=== PATIENT | male | born 1995 | race Two or more races ===

== ENCOUNTER 2018-08-30 08:08 | Emergency (ER) | payer OTHER ==
--- NOTE | 2018-08-30 08:30 | ED Physician Documentation ---
PD HPI HEENT - Stated complaint Stated Complaint: L HIP PAIN - Chief complaint Chief Complaint: Ext Problem - History obtained from History obtained from: Patient PD PAST MEDICAL HISTORY - Present Medications Home Medications: Ambulatory Orders Medication Instructions Recorded Confirmed No Known Home Medications 08/30/18 08/30/18 - Allergies Allergies/Adverse Reactions: Allergies Allergy/AdvReac Type Severity Reaction Status Date / Time No Known Drug Allergies Allergy Verified 08/30/18 08:25 PD ED PE NORMAL - General General: Alert and oriented X 3, Well developed/nourished - HEENT HEENT: Atraumatic, EOMI, Ears normal, Pharynx benign, Other (No foreign body detected in the oropharynx.) - Neck Neck: No adenopathy, No JVD - Cardiac Cardiac: RRR, No murmur - Respiratory Respiratory: No respiratory distress, Clear bilaterally - Derm Derm: No rash - Neuro Neuro: Alert and oriented X 3, No motor deficit, Normal speech Results - Vitals Vitals: Vital Signs - 24 hr 08/30/18 08:16 Temperature 36.0 C L Heart Rate 59 L Respiratory 16 Rate Blood Pressure 139/76 H O2 Saturation 100 Oxygen O2 Source Room air
[2018-08-30] MEDS ORDERED: IBUPROFEN 800 MG TABLET PO STA (08:41)
--- NOTE | 2018-08-30 08:45 | ED Physician Documentation ---
PD HPI LOWER EXT INJURY - Stated complaint Stated Complaint: L HIP PAIN - Chief complaint Chief Complaint: Ext Problem - History obtained from History obtained from: Patient - History of Present Illness PD HPI LOW EXT INJURY LOCATION: Left, Hip Type of injury: Fall Where injury occurred: Other (basketball court) Timing - onset: Last night Timing - details: Still present Worsened by: Moving, Other (walking) Associated symptoms: No: Weakness, Numbness, Swelling Similar symptoms before: Has not had sx before - Additional information Additional information: The patient is a 23-year-old who presents with left hip pain that initially started 2 days ago after playing basketball. It became worse last night after falling while on the basketball court. The pain is worse with walking, and is interfering with his sleep. He denies history of prior injury to his hip. Review of Systems Constitutional: denies: Fever Nose: denies: Congestion Cardiac: denies: Chest pain / pressure Respiratory: denies: Dyspnea, Cough GI: denies: Abdominal Pain, Nausea, Vomiting : denies: Dysuria Skin: denies: Rash, Abrasion (s) Musculoskeletal: reports: Joint pain (left hip). denies: Neck pain, Back pain Neurologic: denies: Focal weakness, Numbness, Headache PD PAST MEDICAL HISTORY - Past Medical History Past Medical History: No Respiratory: None Endocrine/Autoimmune: None - Past Surgical History Past Surgical History: No - Present Medications Home Medications: Ambulatory Orders Medication Instructions Recorded Confirmed Ibuprofen 800 mg PO TID PRN #20 tablet 08/30/18 - Allergies Allergies/Adverse Reactions: Allergies Allergy/AdvReac Type Severity Reaction Status Date / Time No Known Drug Allergies Allergy Verified 08/30/18 08:25 - Social History Does the pt smoke?: No Smoking Status: Never smoker Does the pt drink ETOH?: Yes Does the pt have substance abuse?: No - Immunizations Immunizations are current?: Yes - POLST Patient has POLST: No PD ED PE NORMAL - Vitals Vital signs reviewed: Yes (Borderline systolic hypertension initially.) - General General: Alert and oriented X 3, Well developed/nourished - HEENT HEENT: Atraumatic - Neck Neck: No bony TTP - Cardiac Cardiac: RRR - Respiratory Respiratory: No respiratory distress, Clear bilaterally - Abdomen Abdomen: Soft, Non tender - Back Back: No spinal TTP - Derm Derm: No rash - Extremities Extremities: No edema, No calf tenderness / cord, Other (There is discomfort with internal and external rotation of the left hip. There is mild tenderness to palpation over the left greater trochanter.) - Neuro Neuro: Alert and oriented X 3, No motor deficit, No sensory deficit, Normal s peech Results - Vitals Vitals: Vital Signs - 24 hr 08/30/18 08:16 Temperature 36.0 C L Heart Rate 59 L Respiratory 16 Rate Blood Pressure 139/76 H O2 Saturation 100 Oxygen O2 Source Room air - Rads (name of study) left hip Radiology: Prelim report reviewed, EMP read contemporaneously, See rad report (Normal hip radiography.) PD MEDICAL DECISION MAKING - ED course Complexity details: reviewed results, re-evaluated patient, considered differential, d/w patient ED course: The patient's presentation is most consistent with contusion to the left hip. Hip radiography reveals no acute bony abnormality. Treatment in the emergency department included administration of ibuprofen 800 mg orally. I discussed with him the expected course of injury, symptomatic treatment and outpatient follow-up, as well as potentially worrisome signs or symptoms that should prompt reevaluation in the emergency department. Departure - Departure Disposition: 01 Home, Self Care Clinical Impression: Contusion of left hip Qualifiers: Encounter type: initial encounter Qualified Code(s): S70.02XA - Contusion of left hip, initial encounter Condition: Stable Instructions: ED Contusion Hip Follow-Up: [facility] [Provider Group] Prescriptions: Ibuprofen 800 mg PO TID PRN #20 tablet PRN Reason: Pain Comments: You can use ibuprofen, up to 800 mg daily if needed for pain. Let pain be your guide to activity level. Follow-up with your primary physician within 2 weeks. Call to schedule appointment. Return to the emergency department if you develop increasing pain, or otherwise worsening symptoms. Forms: Activity restrictions
--- NOTE | 2018-08-30 09:07 | XRAY Report ---
Reason: Fell onto hip last night playing basketball. Procedure Date: 08/30/2018 Accession Number: [id number] / [id number] Procedure: XR - Hip w/Pelvis 2-3V LT CPT Code: FULL RESULT: EXAM: PELVIS AND LEFT HIP RADIOGRAPHY EXAM DATE: 08/30/2018 08:59 AM. CLINICAL HISTORY: Fall, pain. COMPARISON: None. TECHNIQUE: 1 view of the pelvis and one additional view of the left hip. FINDINGS: Bones: Normal. No fractures or bone lesion. Joints: Normal. No dislocation. The hip joint space is preserved. Soft Tissues: Unremarkable. IMPRESSION: Normal hip radiography. [facility]
[2018-08-30 09:47] VITALS: BP 130/74
== END 2018-08-30 09:40 | disposition home or self-care (01) ==
LOC: ED 08:08
DX: S70.02XA Contusion of left hip, initial encounter (principal); X58.XXXA Exposure to other specified factors, initial encounter; Y93.67 Activity, basketball; Y92.310 Basketball court as the place of occurrence of the external cause
CPT/HCPCS: 73502; 99283; A9270

== ENCOUNTER 2018-09-06 09:09 | Emergency (ER) | payer OTHER ==
[2018-09-06 09:24] VITALS: BP 133/80
[2018-09-06 09:51] LABS: BILIRUBIN,URINE NEGATIVE (NEGATIVE); GLUCOSE, URINE (UA) NEGATIVE (NEGATIVE); KETONES,URINE (UA) NEGATIVE (NEGATIVE); LEUKOCYTE ESTERASE, URINE NEGATIVE (NEGATIVE); NITRITE,URINE NEGATIVE (NEGATIVE); OCCULT BLOOD,URINE NEGATIVE (NEGATIVE); PROTEIN,URINE 30 mg/dL (NEGATIVE); UROBILINOGEN,URINE 0.2 (NORMAL) E.U./dL (NORMAL)
[2018-09-06 09:58] LABS: CLARITY,URINE CLEAR (CLEAR)
--- NOTE | 2018-09-06 09:58 | ED Physician Documentation ---
PD HPI MALE - Stated complaint Stated Complaint: MALE - Chief complaint Chief Complaint: UTI - History obtained from History obtained from: Patient - History of Present Illness PD HPI MALE CONTRIB FACTORS: Sexually active - Additional information Additional information: The patient is a 23-year-old [employer] male who states, "I want to get tested for any STDs." He denies any symptoms, including denies dysuria, penile discharge, scrotal swelling, or pain. He reports having a new sexual partner, and is concerned about the possibility of STDs. Review of Systems Constitutional: denies: Fever GI: denies: Abdominal Pain, Nausea, Vomiting : denies: Dysuria, Discharge, Testicular pain Skin: denies: Rash Musculoskeletal: denies: Back pain PD PAST MEDICAL HISTORY - Past Medical History Past Medical History: No Respiratory: None Endocrine/Autoimmune: None - Past Surgical History Past Surgical History: No - Present Medications Home Medications: Ambulatory Orders Medication Instructions Recorded Confirmed No Known Home Medications 09/06/18 09/06/18 - Allergies Allergies/Adverse Reactions: Allergies Allergy/AdvReac Type Severity Reaction Status Date / Time No Known Drug Allergies Allergy Verified 09/06/18 09:24 - Social History Does the pt smoke?: No Smoking Status: Never smoker Does the pt drink ETOH?: Yes Does the pt have substance abuse?: No - Immunizations Immunizations are current?: Yes - POLST Patient has POLST: No PD ED PE NORMAL - Vitals Vital signs reviewed: Yes (Borderline systolic hypertension initially.) - General General: Alert and oriented X 3, Well developed/nourished - HEENT HEENT: Atraumatic - Respiratory Respiratory: No respiratory distress - Abdomen Abdomen: Soft, Non tender - Male Male : Other (Circumcised penis, without rash or lesions. No testicular or scrotal swelling.) - Back Back: No CVA TTP - Derm Derm: No rash Results - Vitals Vitals: Oxygen O2 Source Room air - Labs Labs: Laboratory Tests 09/06/18 09/06/18 09:35 10:09 Urine Color YELLOW Urine Clarity CLEAR Urine pH 7.0 Ur Specific [place] 1.020 Urine Protein 30 H Urine Glucose (UA) NEGATIVE Urine Ketones NEGATIVE Urine Occult Blood NEGATIVE Urine Nitrite NEGATIVE Urine Bilirubin NEGATIVE Urine Urobilinogen 0.2 (NORMAL) Ur Leukocyte Esterase NEGATIVE Urine RBC 0-5 Urine WBC 4-5 Ur Squamous Epith Cells FEW Squamous Urine Bacteria Rare Ur Microscopic Review INDICATED Urine Culture Comments NOT INDICATED C.trachomatis RNA (TMA) NOT DETECTED Chlamydia/GC Comment SEE NOTE N.gonorrhoeae RNA (TMA) NOT DETECTED PD MEDICAL DECISION MAKING - ED course Complexity details: reviewed results, considered differential, d/w patient ED course: The patient's presentation is significant for screening for sexually transmitted diseases. He is currently asymptomatic. Urinalysis is negative. Urethral swab was obtained and sent to the lab for GC and chlamydia testing. I discussed with the patient follow-up for the results of the testing, as well as potentially worrisome signs or symptoms that should prompt reevaluation in the emergency dep artment. Departure - Departure Disposition: 01 Home, Self Care Clinical Impression: Screening for STD (sexually transmitted disease) Condition: Stable Instructions: ED Chlamydia GC Poss Culture Pend Follow-Up: [facility] [Provider Group] Comments: He can follow-up for results of the culture in 2 or 3 days. You should schedule follow-up appointment with your primary physician. Discharge Date/Time: 09/06/18 10:02
[2018-09-06 10:05] LABS: BACTERIA,URINE Rare /HPF (None Seen); RBC,URINE 0-5 /HPF (0-5); SQUAMOUS EPITHELIAL CELL,UR FEW Squamous (<= Few)
== END 2018-09-06 10:02 | disposition home or self-care (01) ==
LOC: ED 09:09
DX: Z11.3 Encounter for screening for infections with a predominantly sexual mode of transmission (principal)
CPT/HCPCS: 81001; 81003; 87086; 87491; 87591; 99282; 99283

== ENCOUNTER 2019-12-04 20:49 | Emergency (ER) | payer OTHER ==
--- NOTE | 2019-12-04 21:34 | ED Physician Documentation ---
History of Present Illness - Stated complaint Stated Complaint: BILAT WRIST PX - Chief complaint Chief Complaint: Trauma Ext - History obtained from History obtained from: Patient - Additonal information Additional information: Patient comes emergency department complaining of pain in his bilateral wrists but worse on the left after tripping and falling onto his bilateral outstretched arms during a basketball game around 1900. Patient denies any history of injury to either of his wrist. He is right-hand dominant. He denies any numbness or tingling. He has noticed mild edema of his left wrist with some mild deformity. He states that he has been able to move his fingers, but it hurts. No elbow or shoulder injury on either side. Patient states he can move the right wrist and fingers without difficulty. Review of Systems Ten Systems: 10 systems reviewed and negative Constitutional: reports: Reviewed and negative Eyes: reports: Reviewed and negative Ears: reports: Reviewed and negative Nose: reports: Reviewed and negative Throat: reports: Reviewed and negative Cardiac: reports: Reviewed and negative Respiratory: reports: Reviewed and negative GI: reports: Reviewed and negative : reports: Reviewed and negative Skin: reports: Reviewed and negative Musculoskeletal: reports: Joint pain Neurologic: reports: Reviewed and negative Psychiatric: reports: Reviewed and negative Endocrine: reports: Reviewed and negative Immunocompromised: reports: Reviewed and negative PD PAST MEDICAL HISTORY - Past Medical History Past Medical History: No Respiratory: None Endocrine/Autoimmune: None - Past Surgical History Past Surgical History: No - Present Medications Home Medications: Ambulatory Orders Medication Instructions Recorded Confirmed Hydrocodone/Acetaminophen 1 - 2 each PO Q6H PRN #14 tablet 12/04/19 [Hydrocodon-Acetaminophen 5-325] - Allergies Allergies/Adverse Reactions: Allergies Allergy/AdvReac Type Severity Reaction Status Date / Time No Known Drug Allergies Allergy Verified 12/04/19 20:55 - Social History Does the pt smoke?: No Smoking Status: Never smoker Does the pt drink ETOH?: Yes Does the pt have substance abuse?: No - Immunizations Immunizations are current?: Yes - POLST Patient has POLST: No PD ED PE NORMAL - Vitals Vital signs reviewed: Yes - General General: Alert and oriented X 3, No acute distress - HEENT HEENT: Atraumatic, PERRL, EOMI, Moist mucous membranes - Neck Neck: Supple, no meningeal sign - Cardiac Cardiac: Strong equal pulses - Respiratory Respiratory: No respiratory distress - Derm Derm: Normal color, Warm and dry, No rash, Other (No contusion) - Extremities Extremities: No deformity, Other (Patient has mild edema and moderate tenderness over the dorsal aspect of his left wrist. There is mild snuffbox tenderness. No obvious deformity. Patient is limited range of motion of his fingers on the left full range of motion of elbow and shoulder.Right wrist demonstrates no point tenderness. There is mild tenderness over the hyperthenar eminence. Patient is full range of motion of his fingers and wrist on the right.) - Neuro Neuro: Alert and oriented X 3 - Psych Psych: Normal mood, Normal affect Results - Vitals Vitals: Vital Signs - 24 hr 12/04/19 12/04/19 20:55 23:38 Temperature 36.5 C 36.5 C Heart Rate 80 78 Respiratory 16 16 Rate Blood Pressure 136/69 H 130/70 O2 Saturation 99 100 Oxygen O2 Source Room air - Rads (name of study) Left wrist x-ray Radiology: Final report received, EMP read indepedently, See rad report (Scaphoid fracture) Procedures - Splint (location) Left wrist Splint applied by: Tech, Other (Under my direct supervision) Type of splint: Prefab velcro wrist, Thumb spica Other: Patient tolerated well, No complications, Neurovascular intact PD MEDICAL DECISION MAKING - ED course Complexity details: reviewed results, re-evaluated patient, considered differential, d/w patient ED course: Patient was worked up with x-rays of the left wrist, which did show a scaphoid fracture. Patient was placed in a Velcro thumb spica splint and was advised of the findings on x-ray. Have discussed with him that he will need to follow-up with orthopedics within the next week to determine what the plan should be from here. I have advised patient on the importance of wearing the splint at all times, and the risk of avascular necrosis, should he fail to keep the area immobilized until healing is occurred. We have discussed ice and elevation, and I have given him a small prescription for Vicodin. Departure - Departure Disposition: 01 Home, Self Care Clinical Impression: Scaphoid fracture Qualifiers: Encounter type: initial encounter Scaphoid bone location: unspecified portion of scaphoid Fracture type: closed Fracture alignment: nondisplaced Laterality: left Qualified Code(s): S62.002A - Unspecified fracture of navicular [scaphoid] bone of left wrist, initial encounter for closed fracture Condition: Stable Instructions: ED Fx Wrist Navicular Conf Follow-Up: Feliberto Pedraza MD [Provider Admit Priv/Credential] - Prescriptions: Hydrocodone/Acetaminophen [Hydrocodon-Acetaminophen 5-325] 1 - 2 each PO Q6H PRN #14 tablet PRN Reason: pain Comments: Your x-ray shows a break in your scaphoid, or navicular bone. It is important that you wear the splint [id number] and only take it off too quickly wash your hand wrist and forearm. You will need to call the orthopedic office first thing in the morning to set up a follow-up appointment to be seen within the next week. Usually, the treatment for a scaphoid fracture is splinting and rest of the area for 4 weeks. Your active directory specialist will provide guidance in this regard. Discharge Date/Time: 12/04/19 23:38
--- NOTE | 2019-12-04 22:38 | XRAY Report ---
Reason: injury/pain/swelling Procedure Date: 12/04/2019 Accession Number: [id number] / [id number] Procedure: XR - Wrist 4 View LT CPT Code: Final Report FULL RESULT: EXAM: LEFT WRIST RADIOGRAPHY EXAM DATE: 12/04/2019 10:30 PM. CLINICAL HISTORY: Injury, pain, swelling. COMPARISON: None. TECHNIQUE: 4 views. FINDINGS: Bones: There is a fracture through the waist of the scaphoid. No other fracture seen. Joints: Normal. No subluxations. Soft Tissues: Normal. No soft tissue swelling. IMPRESSION: Scaphoid waist fracture. [facility]
[2019-12-04 23:40] VITALS: BP 130/70
== END 2019-12-04 23:38 | disposition home or self-care (01) ==
LOC: ED 20:49
DX: S62.022A Displaced fracture of middle third of navicular [scaphoid] bone of left wrist, initial encounter for closed fracture (principal); W01.0XXA Fall on same level from slipping, tripping and stumbling without subsequent striking against object, initial encounter; Y93.67 Activity, basketball
CPT/HCPCS: 29125; 99283; 99284